=== PATIENT | male | born 1975 | race African-American/Black ===

== ENCOUNTER 2016-11-08 13:07 | Inpatient (IN) | payer MEDICARE, OTHER ==
[~2016-11-08] VITALS: Ht 182.9 cm; Wt 79.4 kg
[2016-11-08] MEDS ORDERED: fentaNYL PF VIAL 100 MCG/2 ML VIAL IV PRN (13:30)
--- NOTE | 2016-11-08 13:31 | RAD ---
Indication: Fell off of a ladder. Time of exam 1323 hours. 3 views of the right ankle demonstrate severely comminuted fractures of the distal tibia and fibula. There is slight lateral angulation of the distal tibial and fibular fracture fragments. Tibiotalar alignment is maintained, without evidence of dislocation. It is uncertain if there is intra-articular extension. A definite fracture line extending to the mortise is not seen however. The hindfoot is unremarkable. No calcaneal fracture is seen. Impression: Comminuted distal tibial and fibular fractures with angulation.
--- NOTE | 2016-11-08 13:42 | PHYS DOC ---
Past Medical History Past Medical History: No Pertinent History Past Surgical History: No Surgical History Alcohol Use: Heavy Drug Use: None Adult General Chief Complaint Chief Complaint: LOWER EXTREMITY SWELLING HPI HPI 41-year-old male presenting to the emergency department today by EMS after sustaining an injury while his ladder was falling from a proximally 10 feet. This happened yesterday. He complains of severe pain in his right ankle. There is a deformity present. The pain is intermittent sharp nonradiating and alleviated with elevation of the extremity. That he used alcohol to dull the pain. The injury is not getting better. Review of systems is negative for chest pain shortness of breath and pain hip pain abdominal pain or chest pain. All other review of systems is negative unless otherwise noted in history of present illness. Pertinent physical exam findings showed a deformity of the right ankle. Palpable pulse distally with 2 second cap refill. Patient is able to with wiggle his toes and has sensation in the foot currently (he does complain of a light tingling but can feel my hand in all nerve distributions). skin is intact. Not open injury. Nontender knee. Positive squeeze test. Normal range of motion of the knee. Otherwise nontender abdomen no crepitus to palpation of the chest wall. Lung sounds clear bilaterally. Head neck are atraumatic. The remainder of the extremities are atraumatic with normal range of motion. ED course: 41-year-old male presenting to the emergency department after sustaining a tib-fib fracture. Patient was given IV fluids and pain medications. I discussed the case with Dr. Zavala. The patient was then admitted for acute surgical intervention. I admitted the patient to the hospitalist. Review of Systems Review of Systems SEE ABOVE. Current Medications Current Medications Current Medications Medications (Trade) Dose Ordered Sig/Nolan Start Time Stop Time Status Last Admin Dose Admin Fentanyl Citrate (Fentanyl 2ml Vial) 50 mcg PRN Q15MIN PRN 11/08/16 13:30 11/09/16 13:29 11/08/16 13:44 50 MCG Morphine Sulfate 2 mg PRN Q2HR PRN 11/08/16 14:30 11/09/16 14:29 UNV Ondansetron HCl (Zofran) 4 mg PRN Q8HRS PRN 11/08/16 14:30 11/09/16 14:29 Sodium Chloride 1,000 ml @ 125 mls/hr Q8H 11/08/16 14:16 11/09/16 14:15 UNV Allergies Allergies Allergies Coded Allergies Type Severity Reaction Last Updated Verified No Known Drug Allergies 11/08/16 No Physical Exam Physical Exam Constitutional: Well developed, well nourished, no acute distress, non-toxic appearance. [] HENT: Normocephalic, atraumatic, bilateral external ears normal, oropharynx moist, no oral exudates, nose normal. [] Eyes: PERRLA, EOMI, conjunctiva normal, no discharge. [] Neck: Normal range of motion, no tenderness, supple, no stridor. [] Cardiovascular:Heart rate regular rhythm, no murmur [] Lungs & Thorax: Bilateral breath sounds clear to auscultation [] Abdomen: Bowel sounds normal, soft, no tenderness, no masses, no pulsatile masses. [] Skin: Warm, dry, no erythema, no rash. [] Back: No tenderness, no CVA tenderness. [] Extremities: see above Neurologic: Alert and oriented X 3, normal motor function, normal sensory function, no focal deficits noted. [] Psychologic: Affect normal, judgement normal, mood normal. [] Current Patient Data Vital Signs Vital Signs Date Time Temp Pulse Resp B/P (MAP) Pulse Ox O2 Delivery O2 Flow Rate FiO2 11/08/16 13:07 97.7 80 18 98 Room Air 97.7 EKG EKG [] Radiology/Procedures Radiology/Procedures [] Course & Med Decision Making Course & Med Decision Making Pertinent Labs and Imaging studies reviewed. (See chart for details) [] Dragon Disclaimer Dragon Disclaimer This electronic medical record was generated, in whole or in part, using a voice recognition dictation system. Departure Departure Impression: Primary Impression: Tibia/fibula fracture Disposition: ADMITTED INPATIENT Condition: STABLE Problem Qualifiers Primary Impression: Tibia/fibula fracture Encounter type: initial encounter Fracture type: closed Laterality: right Qualified Codes: S82.201A - Unspecified fracture of shaft of right tibia, initial encounter for closed fracture; S82.401A - Unspecified fracture of shaft of right fibula, initial encounter for closed fracture LAISHA GARCÍA MD Nov 08, 2016 13:42
[2016-11-08] MEDS: IV NORMAL SALINE 1000ML BAG 1,000 ML IV SCH ×2 (13:43→20:12)
[2016-11-08] MEDS ORDERED: ONDANSETRON PF 4 MG/2 ML VIAL. IV ONE (13:45)
--- NOTE | 2016-11-08 14:08 | RAD ---
Indication: Fall with pain to the right ankle. Time of exam 1354 hours. 2 views right tibia and fibula were obtained. The comminuted fractures of the distal tibia and fibular are again noted. The more proximal tibia and fibula appear intact. The soft tissues are unremarkable. Impression: Comminuted distal tibial and fibular fractures. No other abnormality is seen.
[2016-11-08] MEDS ORDERED: ONDANSETRON PF 4 MG/2 ML VIAL. IV PRN ×2 (14:30→15:50)
[2016-11-08] MEDS ORDERED: MORPHINE SULFATE 2 MG/ML DISP.SYRIN. IV PRN (14:30)
[2016-11-08] MEDS ORDERED: IV NORMAL SALINE 1000ML BAG 1,000 ML IV SCH (14:30)
--- NOTE | 2016-11-08 15:06 | ACF ---
Admission Forms Criteria MUSCULOSKELETAL DISEASE GRG Clinical Indications for Admission to Inpatient Care (Place 'X' for any and all applicable criteria): Hospital admission is needed for appropriate care of the patient because of 1 or more of the following: [X]I. Fracture, dislocation, or other musculoskeletal injury requiring inpatient care(medical) as indicated by 1 or more of the following(4)(5)(6)(7) [ ]a) Vertebral fracture requiring observation for instability or neurologic compromise (8) [ ]b) Compartment syndrome (proven or cannot be ruled out during observation level of care) (9) [ ]c) Limb-threatening injury [ ]d) Major injury requiring inpatient stabilization such as traction initiation or external fixation before internal fixation or closure of complex or open fracture [X]e) Major injury requiring inpatient treatment after emergency or observation level care (as appropriate) [X]f) Severe pain requiring acute inpatient management [ ]g) Injury with suspicion of abuse or neglect (eg., child, dependent elderly) [ ]II. Newly diagnosed or suspected bone, joint, or orthopedic device infection (e.g., osteomyelitis, septic arthritis) needing 1 or more of the following(1)(2)(3) [ ]a) IV antibiotics that cannot be initiated in other than inpatient setting (e.g., patient too unstable or home infusion not available) [ ]b) Device removal or replacement [ ]c) Bone or soft tissue debridement [ ]d) Joint drainage (drain placement or repetitive aspirations) [ ]III. Severe rheumatologic disease (e.g., systemic lupus erythematosus, rheumatoid arthritis) with complications or comorbidities (Also use Optimal Recovery Care Criteria or General Recovery Criteria as appropriate on the basis of predominant condition), including 1 or more of the following( 10)(11)(12)(13) [ ]a) Severe infection (e.g., MACHINE P[employer] SEALER infection, sepsis) (14) [ ]b) Respiratory complications, including 1 or more of the following : [ ]i) Pleural effusion with respiratory compromise [ ]ii) Pulmonary hypertension with congestive failure [ ]iii) Respiratory failure [ ]iv) Pulmonary hemorrhage (15) [ ]c) Hematologic disease, including 1 or more of the following: [ ]i) Coagulopathy with bleeding [ ]ii) Thrombosis with hypercoagulable state [ ]iii) Thrombotic thrombocytopenic purpura [ ]d) Cerebritis with seizures, psychosis, or other severe abnormalities [ ]e) Vertebral destruction with monitoring needed for cervical myelopathy& possible respiratory compromise [ ]f) Exacerbation that requires inpatient treatment (e.g., intravenous immunosuppression) (16) [ ]g) Acute renal failure [ ]h) Cerebritis with seizures, psychosis, Altered mental status, or other neurologic abnormalities [ ]i) Pericardial effusion with tamponade [ ]j) Vertebral destruction, with monitoring needed for cervical myelopathy and possible respiratory compromise [ ]IV. Severe vasculitis with complications or comorbidities (Also use Optimal Recovery Care Criteria General Recovery Criteria as appropriate on the basis of predominant condition), including 1 or more of the following(11)(12)(17)(18)(19)(20) [ ]a) Exacerbation that requires inpatient treatment (e.g., intravenous immunosuppression) (19)(21) [ ]b) Pulmonary hemorrhage (15) [ ]c) M[employer] P[employer] SE[employer] vasculitis with seizures, psychosis, Altered mental status that is severe or persistent, or other severe abnormalities (22) [ ]d) Cerebral infarction [ ]e) Gastrointestinal ischemia [ ]f) Gangrene or threatened amputation [ ]g) Renal failure (16) [ ]h) Other significant complications of vasculitis ( eg., tissue or organ ischemia, organ dysfunction ) [ ]V. Severe myopathy as indicated by 1 or more of the following (28)(29) [ ]a) New onset of airway compromise or inability to swallow [ ]b) Respiratory deterioration with observation needed for impending respiratory failure [ ]c) Exacerbation that requires inpatient treatment (e.g., intravenous immunosuppression) [ ]. Severe crystal gout (arthropathy) indicated by 1 or more of the following (23)(24) [ ]a) Severe pain requiring acute inpatient management [ ]b) Exacerbation that requires inpatient treatment (e.g., intravenous treatment) [ ]VII.Rhabdomyolysis and 1 or more of the following (25)(26)(27) [ ]a) Acute renal failure [ ]b) Need for intravenous hydration after emergency or observation level care (as appropriate) [ ]c) Inability to maintain oral hydration [ ]d) Change in mental status [ ]e) Electrolyte abnormality that remains after emergency or observation level care (as appropriate) [ ]VIII Post amputation complication, as indicated by ANY ONE of the following [ ]a) Infection [ ]b) Dehiscence [ ]c) Myodesis failure [ ]IX. Severe pain requiring acute inpatient management due to musculoskeletal condition [ ]X. Musculoskeletal Disease and ALL of the following: [ ]a) Symptom or finding for which emergency and observation care have failed or are not considered appropriate (Use General Criteria: Observation Care as appropriate) [ ]b) Presence of ANY ONE of the following [ ]i) A General Admission Criteria [ ]ii) A Pediatric General Admission Criteria The original [facility] [employer] content created by [facility] [employer] has been revised. The portions of the content which have been revised are identified through the use of italic text or in bold, and [facility] has neither reviewed nor approved the modified material. All other unmodified content is copyright [facility]. Please see references footnoted in the original [facility] edition 2016 Admission Criteria Met?: Yes CHARO WALTON Nov 08, 2016 15:06
[2016-11-08 15:30] VITALS: BP 153/86
[2016-11-08] MEDS ORDERED: chlordiazePOXIDE HCL 25 MG CAPSULE PO PRN (16:30)
[2016-11-08] MEDS ORDERED: NICOTINE 21MG PATCH. TD PRN (16:30)
[2016-11-08] MEDS ORDERED: ALPRAZolam 1 MG TABLET PO PRN (16:30)
[2016-11-08] MEDS: fentaNYL PF VIAL 100 MCG/2 ML VIAL IV PRN ×4 (16:31→23:43)
--- NOTE | 2016-11-08 16:33 | PDOC1 ---
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 Decided to come in, FX tib fib on xray, planned for oR tonight PAinful, VS ok, labs ok, cast on, Ortho has seen already at ER level Past Medical History Cardiovascular: No pertinent hx Pulmonary: No pertinent hx GI: No pertinent hx Heme/Onc: No pertinent hx Hepatobiliary: No pertinent hx Psych: No pertinent hx Rheumatologic: No pertinent hx Infectious disease: No pertinent hx ENT: No pertinent hx Renal/: No pertinent hx Endocrine: No pertinent hx Dermatology: No pertinent hx Past Surgical History Past Surgical History: No pertinent history Family History Family History: No Significant Social History Smoke: 1 pack per day ALCOHOL: heavy Drugs: None Current Problem List Problem List Problems Medical Problems: (1) Tibia/fibula fracture Status: Acute Problems: Current Medications Current Medications Current Medications Fentanyl Citrate (Fentanyl 2ml Vial) 50 mcg PRN Q15MIN PRN IV PAIN GREATER THAN 3/10 Last administered on 11/08/16 13:44; Start 11/08/16 at 13:30; Stop 11/08 at 15:53; Status DC Sodium Chloride 1,000 ml @ 100 mls/hr Q10H IV Last administered on 11/08/16 13 :43; Start 11/08/16 at 13:45; Stop 11/08/16 at 23:44 Ondansetron HCl (Zofran) 4 mg 1X ONCE IV Last administered on 11/08/16 13:44; Start 11/08/16 at 13:45; Stop 11/08/16 at 13:46; Status DC Ondansetron HCl (Zofran) 4 mg PRN Q8HRS PRN IV NAUSEA/VOMITING; Start 11/08/16 at 14:30; Stop 11/08/16 at 15:53; Status DC Morphine Sulfate 2 mg PRN Q2HR PRN IV PAIN Last administered on 11/08/16 15:30 ; Start 11/08/16 at 14:30; Stop 11/08/16 at 15:53; Status DC Sodium Chloride 1,000 ml @ 125 mls/hr Q8H IV Last administered on 11/08/16 15: 31; Start 11/08/16 at 14:30; Stop 11/08/16 at 15:53; Status DC Ondansetron HCl (Zofran) 4 mg PRN Q6HRS PRN IV NAUSEA/VOMITING; Start 11/08/16 at 15:50 Fentanyl Citrate (Fentanyl 2ml Vial) 50 mcg PRN Q2HR PRN IV PAIN; Start at 16:00 Pantoprazole Sodium (Protonix Vial) 40 mg DAILYAC IVP ; Start 11/09/16 at 07:30 Enoxaparin Sodium (Lovenox 40mg Syringe) 40 mg Q24H SQ ; Start 11/08/16 at 21:00 Allergies Allergies: Coded Allergies: morphine (Verified Adverse Reaction, Mild, 11/08/16) States it gives him a headache and makes him feel "weird" ROS General: No: Chills, Night Sweats, Fatigue, Malaise, Appetite, Other PSYCHOLOGICAL ROS: No: Anxiety, Behavioral Disorder, Concentration difficultie , Decreased libido, Depression, Disorientation, Hallucinations, Hostility, Irritablity, Memory difficulties, Mood Swings, Obsessive thoughts, Physical abuse, Sexual abuse, Sleep disturbances, Suicidal ideation, Other Eyes: No Blurry vision, No Decreased vision, No Double vision, No Dry eyes, No Excessive tearing, No Eye Pain, No Itchy Eyes, No Loss of vision, No Photophobia , No Scotomata, No Uses contacts, No Uses glasses, No Other HEENT: No: Heacaches, Visual Changes, Hearing change, Nasal congestion, Nasal discharge, Oral lesions, Sinus pain, Sore Throat, Epistaxis, Sneezing, Snoring, Tinnitus, Vertigo, Vocal changes, Other ALLERGY AND IMMUNOLOGY: No: Hives, Insect Bite Sensitivity, Itchy/Watery Eyes, Nasal Congestion, Post Nasal Drip, Seasonal Allergies, Other Hematological and Lymphatic: No: Bleeding Problems, Blood Clots, Blood Transfusions, Brusing, Night Sweats, Pallor, Swollen Lymph Nodes, Other ENDOCRINE: No: Breast Changes, Galactorrhea, Hair Pattern Changes, Hot Flashes , Malaise/lethargy, Mood Swings, Palpitations, Polydipsia/polyuria, Skin Changes , Temperature Intolerance, Unexpected Weight Changes, Other Breast: No New/Changing Breast Lumps, No Nipple changes, No Nipple discharge, No Other Respiratory: No: Cough, Hemoptysis, Orthopnea, Pleuritic Pain, Shortness of breath, SOB with excertion, Sputum Changes, Stridor, Tachypnea, Wheezing, Other Cardiovascular: No Chest Pain, No Palpitations, No Orthopnea, No Paroxysmal Noc. Dyspnea, No Edema, No Lt Headedness, No Other Gastrointestinal: No Nausea, No Vomiting, No Abdominal Pain, No Diarrhea, No Constipation, No Melena, No Hematochezia, No Other Genitourinary: No Dysuria, No Frequency, No Incontinence, No Hematuria, No Retention, No Discharge, No Urgency, No Pain, No Flank Pain, No Other, No , No , No , No , No , No , No Musculoskeletal: Yes Other (R leg pain) Neurological: No Behavorial Changes, No Bowel/Bladder ControlChng, No Confusion , No Dizziness, No Gait Disturbance, No Headaches, No Impaired Coord/balance, No Memory Loss, No Numbness/Tingling, No Seizures, No Speech Problems, No Tremors, No Visual Changes, No Weakness, No Other Skin: No Dry Skin, No Eczema, No Hair Changes, No Lumps, No Mole Changes, No Mottling, No Nail Changes, No Pruritus, No Rash, No Skin Lesion Changes, No Other, No Acne Physical Exam General: Alert, Oriented X3, Cooperative, No acute distress HEENT: Atraumatic, PERRLA, EOMI Lungs: Clear to auscultation, Normal air movement Heart: S1S2, RRR, no thrills, no rubs, no gallops Cardiovascular: S1, S2 Breasts: Normal, Rt breast nml w/o mass, Lt breast nml w/o mass, Nipples normal Abdomen: Normal bowel sounds, Soft, No tenderness, No hepatosplenomegaly, No masses Male Genitals Exam: normal genitalia Extremities: Other (R leg in cast, mild to mod swolen foot, externally rotated) Skin: No rashes, No breakdown, No significant lesion Neuro: Normal gait, Normal speech, Strength at 5/5 X4 ext, Normal tone, Sensation intact, Cranial nerves 3-12 NL, Reflexes 2+ Psych/Mental Status: Mental status NL, Mood NL Vitals Vitals Vital Signs Date Time Temp Pulse Resp B/P (MAP) Pulse Ox O2 Delivery O2 Flow Rate FiO2 11/08/16 15:30 99.1 79 22 153/86 (108) 99 Room Air 99.1 VTE Prophylaxis Ordered VTE Prophylaxis Devices: Yes VTE Pharmacological Prophylaxi: Yes Assessment/Plan Assessment/Plan 1. R tib-fib fx, closed, traumatic sec to fall from ladder 2. SMOker 1ppday 3. HEavy etoh drinker 7 beers a day PLAN: Admit 2 MN NPO, IVF BAnana bag daily NIctoine patch CIWA DVT prophy PPI while nPO PT/OT Dylon RN Kaitlynn Seen at ER MASOOD NORTH MD Nov 08, 2016 16:33
[2016-11-08] MEDS: oxyCODONE/APAP 5/325 1 TAB TABLET PO PRN ×2 (18:32→23:43)
[2016-11-08] MEDS: MULTIVIT INFUSN,ADULT 4,VIT K 10 ML, FOLIC ACID 1 MG, THIAMINE 100 MG in IV DEXTROSE 5 ... IV SCH (18:38)
[2016-11-08 19:00] VITALS: BP 154/93
[2016-11-08] MEDS: ALPRAZolam 0.5 MG TABLET PO PRN (20:02)
[2016-11-08] MEDS: ENOXAPARIN 40 MG/0.4 ML SYRINGE. SQ SCH (20:03)
[2016-11-08 23:00] VITALS: BP 142/98
[2016-11-09] VITALS (9 sets, daily range): BP systolic 104–148; BP diastolic 38–96
[2016-11-09] MEDS: fentaNYL PF VIAL 100 MCG/2 ML VIAL IV PRN ×9 (02:55→20:04)
--- NOTE | 2016-11-09 03:00 | CONS ---
DATE OF CONSULTATION: 11/08/2016 REQUESTING PHYSICIAN: Dr. Low. REASON FOR CONSULTATION: Right ankle fracture. HISTORY OF PRESENT ILLNESS: The patient is an otherwise healthy 41-year-old male who fell from a ladder about 10 feet yesterday landing on his right ankle, had immediate onset of pain. He tried to medicate himself with alcohol last night as he is a heavy drinker, but stated that pain became more severe. He had swelling, inability to bear weight or move the ankle and brought in by ambulance today. PAST HISTORY: He denies any previous past medical or surgical history. ALLERGIES: No drug allergies. MEDICATIONS: No current medications aside from pain medications he has received in the Emergency Department. SOCIAL HISTORY: He denies tobacco or drug use and is a heavy alcohol user. REVIEW OF SYSTEMS: Denies any chest pain, shortness of breath, focal weakness, numbness, tingling, visual changes, loss of consciousness, neck or back pain, injury to any other joint. No loss of consciousness during the episode. No recent constitutional symptoms of fever, chills, change in bowel or bladder habits. FAMILY HISTORY: Noncontributory. PHYSICAL EXAMINATION: VITAL SIGNS: Temperature 97.7, pulse 80, respirations 18, 98% saturation on room air. HEENT: Atraumatic, normocephalic. MUSCULOSKELETAL: He has full range of motion, alignment, stability of bilateral shoulders, elbows and wrists. No tenderness on palpation over his neck or back. Good hip and knee range of motion bilaterally. Obvious deformity of his right ankle with significant swelling. He can wiggle his toes, but indicates some paresthesia in the toes. Normal examination of the contralateral left ankle. IMAGING: X-rays show a distal tibial metaphyseal and comminuted distal fibular fracture of the right ankle. TREATMENT PLAN: I described to him the anatomy of the ankle joint and the fact that he would need surgical intervention due to the current malalignment of the joint surface, but the tibia and fibula are involved and would require plates on each side, take surgery, my major concern is to keep him nonweightbearing to protect it and healing due to the swelling issues. I originally planned to take him to the operating room this evening, but unfortunately some emergency general surgery procedures are going on right now, we would make this very late, therefore I am going to take him to surgery first thing in the morning as there is operating room availability according to the nursing building and grounds supervisor and he is going to be admitted to the hospitalist overnight. Consent was obtained at this time. All of his questions were answered. We will proceed with surgery in the morning. DENEEN HUA MD DR: PRIMITIVO/dalia JOB#: [id number] / [id number]
[2016-11-09] MEDS: oxyCODONE/APAP 5/325 1 TAB TABLET PO PRN ×2 (03:40→23:27)
[2016-11-09 05:42] LABS: BASO # 0.1 x10^3/uL (0.0-0.2); BASO % 1 % (0-3); EOS % 1 % (0-3); HEMATOCRIT 33.9 % (39.0-53.0); HEMOGLOBIN 10.8 g/dL (13.0-17.5); LYMPH # 2.2 x10^3/uL (1.0-4.8); LYMPH % 33 % (24-48); MEAN CORPUSCULAR HEMOGLOBIN 25 pg (25-35); MEAN CORPUSCULAR HGB CONC 32 g/dL (31-37); MEAN CORPUSCULAR VOLUME 78 fL (79-100); MONO % 11 % (0-9); NEUT % 54 % (31-73); PLATELET COUNT 224 x10^3/uL (140-400); RED BLOOD COUNT 4.36 x10^6/uL (4.30-5.70); RED CELL DISTRIBUTION WIDTH 13.6 % (11.5-14.5); WHITE BLOOD COUNT 6.7 x10^3/uL (4.0-11.0)
[2016-11-09 05:55] LABS: GFR 99.6; POTASSIUM 3.9 mmol/L (3.5-5.1)
[2016-11-09] MEDS ORDERED: LIDOCAINE 1% 1 ML SYRINGE. ID PRN (07:00)
[2016-11-09] MEDS ORDERED: fentaNYL PF VIAL 100 MCG/2 ML VIAL IV PRN ×2 (07:00→19:00)
[2016-11-09] MEDS ORDERED: PROCHLORPERAZINE 10 MG/2 ML VIAL. IV PRN (07:00)
[2016-11-09] MEDS ORDERED: HYDROmorphone 2 MG/ML VIAL IV PRN (07:00)
[2016-11-09] MEDS ORDERED: ONDANSETRON PF 4 MG/2 ML VIAL. IV PRN ×2 (07:00→19:00)
[2016-11-09] MEDS ORDERED: MORPHINE SULFATE 2 MG/ML DISP.SYRIN. IV PRN (07:00)
[2016-11-09] MEDS ORDERED: IV RINGERS,LACTATED 1000ML 1,000 ML IV SCH (07:00)
[2016-11-09] MEDS: MULTIVIT INFUSN,ADULT 4,VIT K 10 ML, FOLIC ACID 1 MG, THIAMINE 100 MG in IV DEXTROSE 5 ... IV SCH (08:14)
[2016-11-09] MEDS: PANTOPRAZOLE IV PUSH 40 MG VIAL. IVP SCH (08:15)
[2016-11-09] MEDS ORDERED: FAMOTIDINE 20 MG/2 ML VIAL ONE (10:14)
[2016-11-09] MEDS ORDERED: DEXAMETHASONE SOD PHOS 20 MG/5 ML VIAL. ONE ×2 (10:14→15:12)
[2016-11-09] MEDS ORDERED: ROCURONIUM 50 MG/5 ML VIAL. ONE (10:14)
[2016-11-09] MEDS ORDERED: fentaNYL PF VIAL 100 MCG/2 ML VIAL ONE ×2 (10:14→15:12)
[2016-11-09] MEDS ORDERED: ONDANSETRON PF 4 MG/2 ML VIAL. ONE ×2 (10:14→15:12)
[2016-11-09] MEDS ORDERED: PROPOFOL 20 ML IV ONE ×2 (10:14→15:12)
[2016-11-09] MEDS ORDERED: LIDOCAINE 2% PF Vial for OR 5 ML VIAL. ONE ×2 (10:14→15:12)
[2016-11-09] MEDS ORDERED: MIDAZOLAM HCL/PF 2 MG/2 ML VIAL. ONE ×2 (10:16→15:12)
[2016-11-09] MEDS ORDERED: BUPIVACAINE MPF 0.5% 30 ML VIAL. ONE (15:33)
--- NOTE | 2016-11-09 17:31 | PDOC ---
PROGRESS NOTES Chief Complaint Chief Complaint Traumatic tib/fib fx ASSESSMENT AND PLAN: 1. Tib/fib fx: ORIF today. 2. EtOH abuse: banana bagCARINA protocol 3. Tobacco use: nicotine patch 4. Prophylaxis: lovenox post op; PPI History of Present Illness History of Present Illness pain fairly well controlled. Vitals Vitals Vital Signs Date Time Temp Pulse Resp B/P (MAP) Pulse Ox O2 Delivery O2 Flow Rate FiO2 11/09/16 15:35 18 99 Room Air 11/09/16 12:29 99.1 92 136/95 (109) 99.1 Physical Exam General: Alert, Oriented X3, Cooperative, No acute distress Abdomen: Normal bowel sounds, Soft, No tenderness, No hepatosplenomegaly, No masses Extremities: Other (R leg in cast, mild to mod swolen foot, externally rotated) Skin: No rashes, No breakdown, No significant lesion Labs LABS Laboratory Tests Test 11/09/16 05:25 White Blood Count 6.7 x10^3/uL (4.0-11.0) Red Blood Count 4.36 x10^6/uL (4.30-5.70) Hemoglobin 10.8 g/dL (13.0-17.5) Hematocrit 33.9 % (39.0-53.0) Mean Corpuscular Volume 78 fL (79-100) Mean Corpuscular Hemoglobin 25 pg (25-35) Mean Corpuscular Hemoglobin Concent 32 g/dL (31-37) Red Cell Distribution Width 13.6 % (11.5-14.5) Platelet Count 224 x10^3/uL (140-400) Neutrophils (%) (Auto) 54 % (31-73) Lymphocytes (%) (Auto) 33 % (24-48) Monocytes (%) (Auto) 11 % (0-9) Eosinophils (%) (Auto) 1 % (0-3) Basophils (%) (Auto) 1 % (0-3) Neutrophils # (Auto) 3.6 x10^3uL (1.8-7.7) Lymphocytes # (Auto) 2.2 x10^3/uL (1.0-4.8) Monocytes # (Auto) 0.8 x10^3/uL (0.0-1.1) Eosinophils # (Auto) 0.1 x10^3/uL (0.0-0.7) Basophils # (Auto) 0.1 x10^3/uL (0.0-0.2) Sodium Level 137 mmol/L (136-145) Potassium Level 3.9 mmol/L (3.5-5.1) Chloride Level 102 mmol/L (98-107) Carbon Dioxide Level 32 mmol/L (21-32) Anion Gap 3 (6-14) Blood Urea Nitrogen 12 mg/dL (8-26) Creatinine 1.0 mg/dL (0.7-1.3) Estimated GFR (Cockcroft-Gault) 99.6 Glucose Level 113 mg/dL (70-99) Calcium Level 8.0 mg/dL (8.5-10.1) GUPRREET RANKIN MD Nov 09, 2016 17:31
[2016-11-09] MEDS ORDERED: ESMOLOL 100 MG/10 ML VIAL. IV ONE (17:37)
--- NOTE | 2016-11-09 18:58 | PDOC ---
BRIEF OPERATIVE NOTE Date: Nov 09, 2016 Pre-Op Diagnosis right tibia pilon and distal fibula fxs Post-Op Diagnosis same Procedure Performed ORIF tibial pilon and distal fibulas fxs Surgeon Lucas Anesthesia Type: General Blood Loss 20cc Findings above Complications none DENEEN HUA MD Nov 09, 2016 18:58
[2016-11-09] MEDS ORDERED: DEXTROSE 50% 25 GM / 50ML DISP.SYRIN. IV PRN (19:00)
[2016-11-09] MEDS ORDERED: HYDROcodone/APAP 7.5/325MG 1 TAB TABLET PO PRN ×2 (19:00)
[2016-11-09] MEDS ORDERED: POLYETHYLENE GLYCOL 3350 17 GM PACKET. PO PRN (19:00)
[2016-11-09] MEDS ORDERED: WARFARIN 7.5 MG TABLET. PO ONE (19:00)
[2016-11-09 20:02] LABS: PROTHROMBIN TIME PATIENT 12.8 SEC (11.7-14.0)
[2016-11-09] MEDS: ENOXAPARIN 40 MG/0.4 ML SYRINGE. SQ SCH (21:07)
--- NOTE | 2016-11-09 23:35 | OP ---
DATE OF SURGERY: 11/09/2016 PREOPERATIVE DIAGNOSIS: Displaced right tibial plafond and distal fibular fractures. PROCEDURE: Operative reduction and internal fixation, tibial plafond fracture and distal fibular shaft fracture with medial locking plate and screw fixation and lateral distal fibular locking plate fixation. SURGEON: Deni Zavala M.D. ANESTHESIA: General. ESTIMATED BLOOD LOSS: 20 mL. COMPLICATIONS: None. TOURNIQUET TIME: Slightly in excess of 1 hour and half. OPERATIVE INDICATIONS: The patient is a 41-year-old male who fell about 10 feet off a ladder sustaining the above injury. I had gone over with him the risks, benefits, postoperative course of the planned operative treatment and desirable outcomes of nonoperative management and the possibility of infection, wound healing problems, medical or other anesthetic complications, nonhealing, nerve or blood vessel damage among others and the ____ expected period of nonweightbearing. All his questions were answered. Consent was obtained and he agrees to proceed with operative evaluation and treatment. OPERATIVE TECHNIQUE: The patient was identified, procedure verified, patient placed in the supine position on the operating table. After thigh tourniquet was placed and the right lower extremity was prepped and draped in standard sterile fashion. A timeout was performed, the patient and procedure identified and verified. The right lower extremity was then exsanguinated by an Esmarch bandage. Tourniquet inflated to 300 mmHg and a medial incision was made over the medial tibial crest and subperiosteal dissection was carried out. The articular surface was anatomically aligned. The tibial shaft and distal locking screws were placed along with a single shaft screw nonlocking in a sliding hole initially. Excellent alignment was noted at the ankle joint. Screws were initially repositioned to achieve anatomic distal alignment. The remainder of the locking screws were placed into the metaphyseal region for additional fixation, all under fluoroscopic guidance. The shaft screws were then placed in a nonlocking fashion to complete the fixation. The distal fibula was then exposed with a longitudinal incision. Subperiosteal dissection carried out and there was very significant comminution noted in the fibular shaft, 8-hole distal locking plate from Ai was then selected and shaft screw was placed to obtain an anatomic reduction; comminuted fracture fragments were placed around the area. Distal locking screws were then placed with a 2.7. Appropriately sized screws throughout and proximally nonlocked 2.7 bicortical screws were placed. Excellent anatomic alignment was shown at the ankle joint mortise under multiple views including AP, mortise and lateral views. Position of hardware was likewise checked. Thorough irrigation carried out with normal saline solution and closure accomplished with buried Vicryl suture and aileen laterally, closure medially in addition to buried Vicryl suture was supplemented by trauma [id number]-near stitch to relieve tension on the skin area, particularly in the midpoint of the incision. Excellent closure was accomplished with #2-0 nylon suture in this fashion. Again, thorough irrigation carried out with normal saline solution. The subcutaneous area was injected with 0.5% plain Marcaine. Sterile dressings and well-padded posterior splint were then placed. Toes were noted to be warm and pink following deflation of the tourniquet after a total tourniquet time slightly in excess of an hour and half. The patient was extubated and transferred to postop holding in stable condition having tolerated the procedure well. DENI ZAVALA MD DR: PRIMITIVO/dalia JOB#: [id number] / [id number]
[2016-11-10] MEDS: oxyCODONE IR 5 MG TABLET PO PRN ×6 (02:32→21:22)
[2016-11-10] MEDS: fentaNYL PF VIAL 100 MCG/2 ML VIAL IV PRN (02:40)
[2016-11-10 03:18] VITALS: BP 140/84
[2016-11-10 04:12] LABS: BASO % 0 % (0-3); EOS % 0 % (0-3); HEMATOCRIT 35.2 % (39.0-53.0); HEMOGLOBIN 11.1 g/dL (13.0-17.5); LYMPH # 0.6 x10^3/uL (1.0-4.8); LYMPH % 8 % (24-48); MEAN CORPUSCULAR HEMOGLOBIN 25 pg (25-35); MEAN CORPUSCULAR HGB CONC 32 g/dL (31-37); MEAN CORPUSCULAR VOLUME 78 fL (79-100); MONO % 11 % (0-9); NEUT % 81 % (31-73); PLATELET COUNT 246 x10^3/uL (140-400); RED BLOOD COUNT 4.51 x10^6/uL (4.30-5.70); RED CELL DISTRIBUTION WIDTH 13.6 % (11.5-14.5); WHITE BLOOD COUNT 8.2 x10^3/uL (4.0-11.0)
[2016-11-10 04:32] LABS: ALBUMIN 3.1 g/dL (3.4-5.0); ALBUMIN/GLOBULIN RATIO 0.8 (1.0-1.7); CALCIUM 8.6 mg/dL (8.5-10.1); CREATININE 0.9 mg/dL (0.7-1.3); GFR 112.5; POTASSIUM 3.7 mmol/L (3.5-5.1); TOTAL BILIRUBIN 0.5 mg/dL (0.2-1.0); TOTAL PROTEIN 6.9 g/dL (6.4-8.2)
[2016-11-10 04:42] LABS: INR 1.1 (0.8-1.1); PROTHROMBIN TIME PATIENT 13.2 SEC (11.7-14.0)
[2016-11-10] MEDS: oxyCODONE/APAP 5/325 1 TAB TABLET PO PRN (04:42)
[2016-11-10] MEDS ORDERED: MAGNESIUM HYDROXIDE 2,400 MG/30 ML ORAL.SUSP. PO PRN (06:00)
[2016-11-10 07:00] VITALS: BP 151/93
[2016-11-10] MEDS: PANTOPRAZOLE IV PUSH 40 MG VIAL. IVP SCH (08:53)
[2016-11-10] MEDS: MULTIVIT INFUSN,ADULT 4,VIT K 10 ML, FOLIC ACID 1 MG, THIAMINE 100 MG in IV DEXTROSE 5 ... IV SCH (08:54)
[2016-11-10] MEDS ORDERED: SENNOSIDES/DOCUSATE 8.6/50MG TABLET. PO SCH (09:00)
[2016-11-10 11:00] VITALS: BP 137/85
--- NOTE | 2016-11-10 12:35 | PDOC ---
PROGRESS NOTES Chief Complaint Chief Complaint Traumatic tib/fib fx ASSESSMENT AND PLAN: 1. Tib/fib fx: ORIF on 11/[address] Zavala 2. pain control: not optimal. increase perocets, avoid fentanyl. d/w him and 3. EtOH abuse: not triggering any W/D signs or sx on CIWA. monitor for add.l 24h. stop banana bag today, is eating w/o difficulties 4. Tobacco use: nicotine patch 5. Prophylaxis: lovenox post op; PPI 6. Constipation: not unexpected with narcotics. start SenokotS 7. Anemia: microcytic. obtain iron studies 8. Dispo: OT/PT eval. with non-weight baring, anticipate home in near future History of Present Illness History of Present Illness pain 7 at best, had a rough night. also constipated Vitals Vitals Vital Signs Date Time Temp Pulse Resp B/P (MAP) Pulse Ox O2 Delivery O2 Flow Rate FiO2 11/10/16 11:53 Room Air 11/10/16 11:00 98.2 86 18 137/85 (102) 99 98.2 11/09/16 19:16 10 Physical Exam General: Alert, Oriented X3, Cooperative, No acute distress Heart: Regular rate Lungs: Clear Abdomen: Normal bowel sounds, Soft, No tenderness Extremities: No edema, Other (R leg in cast ) Skin: No rashes, No breakdown, No significant lesion Labs LABS Laboratory Tests Test 11/09/16 19:45 11/10/16 03:40 Prothrombin Time 12.8 SEC (11.7-14.0) 13.2 SEC (11.7-14.0) Prothromb Time International Ratio 1.0 (0.8-1.1) 1.1 (0.8-1.1) White Blood Count 8.2 x10^3/uL (4.0-11.0) Red Blood Count 4.51 x10^6/uL (4.30-5.70) Hemoglobin 11.1 g/dL (13.0-17.5) Hematocrit 35.2 % (39.0-53.0) Mean Corpuscular Volume 78 fL (79-100) Mean Corpuscular Hemoglobin 25 pg (25-35) Mean Corpuscular Hemoglobin Concent 32 g/dL (31-37) Red Cell Distribution Width 13.6 % (11.5-14.5) Platelet Count 246 x10^3/uL (140-400) Neutrophils (%) (Auto) 81 % (31-73) Lymphocytes (%) (Auto) 8 % (24-48) Monocytes (%) (Auto) 11 % (0-9) Eosinophils (%) (Auto) 0 % (0-3) Basophils (%) (Auto) 0 % (0-3) Neutrophils # (Auto) 6.6 x10^3uL (1.8-7.7) Lymphocytes # (Auto) 0.6 x10^3/uL (1.0-4.8) Monocytes # (Auto) 0.9 x10^3/uL (0.0-1.1) Eosinophils # (Auto) 0.0 x10^3/uL (0.0-0.7) Basophils # (Auto) 0.0 x10^3/uL (0.0-0.2) Sodium Level 138 mmol/L (136-145) Potassium Level 3.7 mmol/L (3.5-5.1) Chloride Level 101 mmol/L (98-107) Carbon Dioxide Level 32 mmol/L (21-32) Anion Gap 5 (6-14) Blood Urea Nitrogen 5 mg/dL (8-26) Creatinine 0.9 mg/dL (0.7-1.3) Estimated GFR (Cockcroft-Gault) 112.5 BUN/Creatinine Ratio 6 (6-20) Glucose Level 120 mg/dL (70-99) Calcium Level 8.6 mg/dL (8.5-10.1) Total Bilirubin 0.5 mg/dL (0.2-1.0) Aspartate Amino Transf (AST/SGOT) 39 U/L (15-37) Alanine Aminotransferase (ALT/SGPT) 32 U/L (16-63) Alkaline Phosphatase 59 U/L (46-116) Total Protein 6.9 g/dL (6.4-8.2) Albumin 3.1 g/dL (3.4-5.0) Albumin/Globulin Ratio 0.8 (1.0-1.7) GURPREET RANKIN MD Nov 10, 2016 12:35
[2016-11-10] MEDS ORDERED: oxyCODONE IR 5 MG TABLET PO PRN (12:45)
[2016-11-10] MEDS: SENNOSIDES/DOCUSATE 8.6/50MG TABLET. PO SCH (14:41)
[2016-11-10 14:44] VITALS: BP 160/88
[2016-11-10] MEDS ORDERED: BISACODYL 10 MG SUPP.RECT. PR PRN (16:00)
[2016-11-10] MEDS ORDERED: WARFARIN 5 MG TABLET. PO ONE (16:00)
[2016-11-10] MEDS: HYDROmorphone 2 MG/ML VIAL IVP PRN ×3 (16:48→23:06)
[2016-11-10 19:30] VITALS: BP 151/83
[2016-11-10] MEDS: ENOXAPARIN 40 MG/0.4 ML SYRINGE. SQ SCH (21:21)
[2016-11-10 23:35] VITALS: BP 133/82
[2016-11-11] MEDS: HYDROmorphone 2 MG/ML VIAL IVP PRN ×3 (02:04→16:23)
[2016-11-11 03:14] VITALS: BP 134/79
[2016-11-11] MEDS: ALPRAZolam 0.5 MG TABLET PO PRN ×3 (06:00→23:53)
[2016-11-11 06:18] LABS: BASO % 1 % (0-3); EOS % 1 % (0-3); HEMATOCRIT 33.3 % (39.0-53.0); HEMOGLOBIN 10.6 g/dL (13.0-17.5); LYMPH # 2.3 x10^3/uL (1.0-4.8); LYMPH % 28 % (24-48); MEAN CORPUSCULAR HEMOGLOBIN 25 pg (25-35); MEAN CORPUSCULAR HGB CONC 32 g/dL (31-37); MEAN CORPUSCULAR VOLUME 78 fL (79-100); MONO % 10 % (0-9); NEUT % 60 % (31-73); PLATELET COUNT 256 x10^3/uL (140-400); RED BLOOD COUNT 4.27 x10^6/uL (4.30-5.70); RED CELL DISTRIBUTION WIDTH 13.1 % (11.5-14.5)
[2016-11-11 06:41] LABS: INR 1.1 (0.8-1.1); PROTHROMBIN TIME PATIENT 13.1 SEC (11.7-14.0)
[2016-11-11 06:47] LABS: % SAT IRON 5 % (15-34); IRON,SERUM 10 ug/dL (65-175)
[2016-11-11 06:51] LABS: CALCIUM 8.5 mg/dL (8.5-10.1); CREATININE 0.9 mg/dL (0.7-1.3); GFR 112.5; POTASSIUM 3.4 mmol/L (3.5-5.1)
[2016-11-11 07:00] VITALS: BP 137/80
[2016-11-11] MEDS: oxyCODONE IR 5 MG TABLET PO PRN ×3 (07:50→21:45)
[2016-11-11] MEDS: PANTOPRAZOLE 40 MG TABLET.DR. PO SCH (07:50)
[2016-11-11] MEDS: SENNOSIDES/DOCUSATE 8.6/50MG TABLET. PO SCH ×2 (07:51→21:45)
[2016-11-11] MEDS: fentaNYL PF VIAL 100 MCG/2 ML VIAL IV PRN ×3 (07:51→23:53)
[2016-11-11 11:00] VITALS: BP 121/76
--- NOTE | 2016-11-11 14:43 | PDOC ---
PROGRESS NOTES Chief Complaint Chief Complaint Traumatic tib/fib fx ASSESSMENT AND PLAN: 1. Tib/fib fx: ORIF on 11/[address] Zavala 2. pain control: not optimal, despite increased dose and frequency. switch to PO morphine 3. EtOH abuse: not triggering any W/D signs or sx on CIWA. stop protocol 4. Tobacco use: nicotine patch 5. Prophylaxis: lovenox post op; PPI 6. Constipation: not unexpected with narcotics. increase SenokotS to bid, miralax prn 7. Anemia: microcytic. iron studies c/w combination of iron deficient and inflammation. start Fe oral on O/P basis (can add to constipation) 8. Dispo: OT/PT eval. with non-weight baring, anticipate home in near future History of Present Illness History of Present Illness pain 7 at best, had a rough night. remains constipated Vitals Vitals Vital Signs Date Time Temp Pulse Resp B/P (MAP) Pulse Ox O2 Delivery O2 Flow Rate FiO2 11/11/16 13:40 Room Air 11/11/16 11:00 99.0 77 18 121/76 (91) 100 99.0 11/10/16 21:00 10.0 Physical Exam General: Alert, Oriented X3, Cooperative, mild distress Heart: Regular rate Lungs: Clear Abdomen: Normal bowel sounds, Soft, No tenderness Extremities: No edema, Other (R leg in cast ) Skin: No rashes, No breakdown, No significant lesion Labs LABS Laboratory Tests Test 11/11/16 05:55 White Blood Count 8.0 x10^3/uL (4.0-11.0) Red Blood Count 4.27 x10^6/uL (4.30-5.70) Hemoglobin 10.6 g/dL (13.0-17.5) Hematocrit 33.3 % (39.0-53.0) Mean Corpuscular Volume 78 fL (79-100) Mean Corpuscular Hemoglobin 25 pg (25-35) Mean Corpuscular Hemoglobin Concent 32 g/dL (31-37) Red Cell Distribution Width 13.1 % (11.5-14.5) Platelet Count 256 x10^3/uL (140-400) Neutrophils (%) (Auto) 60 % (31-73) Lymphocytes (%) (Auto) 28 % (24-48) Monocytes (%) (Auto) 10 % (0-9) Eosinophils (%) (Auto) 1 % (0-3) Basophils (%) (Auto) 1 % (0-3) Neutrophils # (Auto) 4.8 x10^3uL (1.8-7.7) Lymphocytes # (Auto) 2.3 x10^3/uL (1.0-4.8) Monocytes # (Auto) 0.8 x10^3/uL (0.0-1.1) Eosinophils # (Auto) 0.1 x10^3/uL (0.0-0.7) Basophils # (Auto) 0.0 x10^3/uL (0.0-0.2) Prothrombin Time 13.1 SEC (11.7-14.0) Prothromb Time International Ratio 1.1 (0.8-1.1) Sodium Level 136 mmol/L (136-145) Potassium Level 3.4 mmol/L (3.5-5.1) Chloride Level 97 mmol/L (98-107) Carbon Dioxide Level 32 mmol/L (21-32) Anion Gap 7 (6-14) Blood Urea Nitrogen 5 mg/dL (8-26) Creatinine 0.9 mg/dL (0.7-1.3) Estimated GFR (Cockcroft-Gault) 112.5 Glucose Level 96 mg/dL (70-99) Calcium Level 8.5 mg/dL (8.5-10.1) Iron Level 10 ug/dL (65-175) Total Iron Binding Capacity 211 ug/dL (250-450) Iron Saturation 5 % (15-34) Ferritin 225 ng/mL (26-388) GURPREET RANKIN MD Nov 11, 2016 14:42
[2016-11-11 15:00] VITALS: BP 139/80
[2016-11-11] MEDS ORDERED: WARFARIN 7.5 MG TABLET. PO ONE (16:00)
[2016-11-11] MEDS ORDERED: MORPHINE IR 15 MG TABLET PO PRN ×2 (18:30→18:45)
[2016-11-11 19:00] VITALS: BP 138/84
--- NOTE | 2016-11-11 19:23 | PDOC ---
PROGRESS NOTES Subjective Subjective Problems overnight: Somewhat better pain relief with the lighted but still has severe pain he continues to think that elevation of the foot makes his toes feel tighter and he likes to draw up the foot toward his buttock area Objective Vital Signs Vital Signs Date Time Temp Pulse Resp B/P (MAP) Pulse Ox O2 Delivery O2 Flow Rate FiO2 11/11/16 16:54 Room Air 11/11/16 15:00 97.5 94 20 139/80 (99) 97 97.5 11/10/16 21:00 10.0 Physical Exam On exam he has some slight lateral drainage distal neurovascular status intact good capillary refill to the toes Labs Laboratory Tests Test 11/09/16 19:45 11/10/16 03:40 11/11/16 05:55 Prothrombin Time 12.8 SEC (11.7-14.0) 13.2 SEC (11.7-14.0) 13.1 SEC (11.7-14.0) Prothromb Time International Ratio 1.0 (0.8-1.1) 1.1 (0.8-1.1) 1.1 (0.8-1.1) White Blood Count 8.2 x10^3/uL (4.0-11.0) 8.0 x10^3/uL (4.0-11.0) Red Blood Count 4.51 x10^6/uL (4.30-5.70) 4.27 x10^6/uL (4.30-5.70) Hemoglobin 11.1 g/dL (13.0-17.5) 10.6 g/dL (13.0-17.5) Hematocrit 35.2 % (39.0-53.0) 33.3 % (39.0-53.0) Mean Corpuscular Volume 78 fL (79-100) 78 fL (79-100) Mean Corpuscular Hemoglobin 25 pg (25-35) 25 pg (25-35) Mean Corpuscular Hemoglobin Concent 32 g/dL (31-37) 32 g/dL (31-37) Red Cell Distribution Width 13.6 % (11.5-14.5) 13.1 % (11.5-14.5) Platelet Count 246 x10^3/uL (140-400) 256 x10^3/uL (140-400) Neutrophils (%) (Auto) 81 % (31-73) 60 % (31-73) Lymphocytes (%) (Auto) 8 % (24-48) 28 % (24-48) Monocytes (%) (Auto) 11 % (0-9) 10 % (0-9) Eosinophils (%) (Auto) 0 % (0-3) 1 % (0-3) Basophils (%) (Auto) 0 % (0-3) 1 % (0-3) Neutrophils # (Auto) 6.6 x10^3uL (1.8-7.7) 4.8 x10^3uL (1.8-7.7) Lymphocytes # (Auto) 0.6 x10^3/uL (1.0-4.8) 2.3 x10^3/uL (1.0-4.8) Monocytes # (Auto) 0.9 x10^3/uL (0.0-1.1) 0.8 x10^3/uL (0.0-1.1) Eosinophils # (Auto) 0.0 x10^3/uL (0.0-0.7) 0.1 x10^3/uL (0.0-0.7) Basophils # (Auto) 0.0 x10^3/uL (0.0-0.2) 0.0 x10^3/uL (0.0-0.2) Sodium Level 138 mmol/L (136-145) 136 mmol/L (136-145) Potassium Level 3.7 mmol/L (3.5-5.1) 3.4 mmol/L (3.5-5.1) Chloride Level 101 mmol/L (98-107) 97 mmol/L (98-107) Carbon Dioxide Level 32 mmol/L (21-32) 32 mmol/L (21-32) Anion Gap 5 (6-14) 7 (6-14) Blood Urea Nitrogen 5 mg/dL (8-26) 5 mg/dL (8-26) Creatinine 0.9 mg/dL (0.7-1.3) 0.9 mg/dL (0.7-1.3) Estimated GFR (Cockcroft-Gault) 112.5 112.5 BUN/Creatinine Ratio 6 (6-20) Glucose Level 120 mg/dL (70-99) 96 mg/dL (70-99) Calcium Level 8.6 mg/dL (8.5-10.1) 8.5 mg/dL (8.5-10.1) Total Bilirubin 0.5 mg/dL (0.2-1.0) Aspartate Amino Transf (AST/SGOT) 39 U/L (15-37) Alanine Aminotransferase (ALT/SGPT) 32 U/L (16-63) Alkaline Phosphatase 59 U/L (46-116) Total Protein 6.9 g/dL (6.4-8.2) Albumin 3.1 g/dL (3.4-5.0) Albumin/Globulin Ratio 0.8 (1.0-1.7) Iron Level 10 ug/dL (65-175) Total Iron Binding Capacity 211 ug/dL (250-450) Iron Saturation 5 % (15-34) Ferritin 225 ng/mL (26-388) Laboratory Tests Test 11/11/16 05:55 White Blood Count 8.0 x10^3/uL (4.0-11.0) Red Blood Count 4.27 x10^6/uL (4.30-5.70) Hemoglobin 10.6 g/dL (13.0-17.5) Hematocrit 33.3 % (39.0-53.0) Mean Corpuscular Volume 78 fL (79-100) Mean Corpuscular Hemoglobin 25 pg (25-35) Mean Corpuscular Hemoglobin Concent 32 g/dL (31-37) Red Cell Distribution Width 13.1 % (11.5-14.5) Platelet Count 256 x10^3/uL (140-400) Neutrophils (%) (Auto) 60 % (31-73) Lymphocytes (%) (Auto) 28 % (24-48) Monocytes (%) (Auto) 10 % (0-9) Eosinophils (%) (Auto) 1 % (0-3) Basophils (%) (Auto) 1 % (0-3) Neutrophils # (Auto) 4.8 x10^3uL (1.8-7.7) Lymphocytes # (Auto) 2.3 x10^3/uL (1.0-4.8) Monocytes # (Auto) 0.8 x10^3/uL (0.0-1.1) Eosinophils # (Auto) 0.1 x10^3/uL (0.0-0.7) Basophils # (Auto) 0.0 x10^3/uL (0.0-0.2) Prothrombin Time 13.1 SEC (11.7-14.0) Prothromb Time International Ratio 1.1 (0.8-1.1) Sodium Level 136 mmol/L (136-145) Potassium Level 3.4 mmol/L (3.5-5.1) Chloride Level 97 mmol/L (98-107) Carbon Dioxide Level 32 mmol/L (21-32) Anion Gap 7 (6-14) Blood Urea Nitrogen 5 mg/dL (8-26) Creatinine 0.9 mg/dL (0.7-1.3) Estimated GFR (Cockcroft-Gault) 112.5 Glucose Level 96 mg/dL (70-99) Calcium Level 8.5 mg/dL (8.5-10.1) Iron Level 10 ug/dL (65-175) Total Iron Binding Capacity 211 ug/dL (250-450) Iron Saturation 5 % (15-34) Ferritin 225 ng/mL (26-388) Assessment Assessment POD# [], S/P [ORIF distal tibia and fibula fracture] Problems: Plan Plan of Care I encouraged him to elevate as much as possible is that we'll ultimately take the swelling down the best. While he is otherwise stable from an orthopedic standpoint we really need to get his pain under a bit better control using oral medications before discharge is feasible DENEEN HUA MD Nov 11, 2016 19:23
[2016-11-11] MEDS: ENOXAPARIN 40 MG/0.4 ML SYRINGE. SQ SCH (21:47)
[2016-11-11 23:00] VITALS: BP 133/75
[2016-11-12] MEDS: fentaNYL PF VIAL 100 MCG/2 ML VIAL IV PRN ×5 (02:29→23:36)
[2016-11-12 03:24] VITALS: BP 128/63
[2016-11-12] MEDS: oxyCODONE IR 5 MG TABLET PO PRN ×2 (03:52→12:18)
[2016-11-12 07:00] VITALS: BP 117/80
[2016-11-12] MEDS: ALPRAZolam 0.5 MG TABLET PO PRN ×2 (08:07→16:31)
[2016-11-12] MEDS: PANTOPRAZOLE 40 MG TABLET.DR. PO SCH (08:07)
[2016-11-12] MEDS: SENNOSIDES/DOCUSATE 8.6/50MG TABLET. PO SCH ×2 (08:08→22:01)
[2016-11-12 08:18] LABS: INR 1.2 (0.8-1.1); PROTHROMBIN TIME PATIENT 14.5 SEC (11.7-14.0)
[2016-11-12 11:00] VITALS: BP 114/68
[2016-11-12] MEDS: IBUPROFEN 600 MG TABLET. PO PRN ×2 (12:16→19:29)
[2016-11-12 15:11] VITALS: BP 116/73
--- NOTE | 2016-11-12 15:42 | PDOC ---
ORTHO PROGRESS NOTES Subjective Pain a little bit better today. Had trouble sleeping due to the pain last night. Xanax seemed to help him sleep better. Fentanyl not giving much relief. Complains of numbness in toes present since injury. Able to wiggle toes. Medical started ibuprofen today Post-op Day: 3 (ORIF tibial pilon and distal fibulas fxs) Vitals Vital Signs Date Time Temp Pulse Resp B/P (MAP) Pulse Ox O2 Delivery O2 Flow Rate FiO2 11/12/16 15:11 97.6 72 18 116/73 (87) 100 Room Air 97.6 Labs Laboratory Tests Test 11/11/16 05:55 11/12/16 07:50 White Blood Count 8.0 x10^3/uL (4.0-11.0) Red Blood Count 4.27 x10^6/uL (4.30-5.70) Hemoglobin 10.6 g/dL (13.0-17.5) Hematocrit 33.3 % (39.0-53.0) Mean Corpuscular Volume 78 fL (79-100) Mean Corpuscular Hemoglobin 25 pg (25-35) Mean Corpuscular Hemoglobin Concent 32 g/dL (31-37) Red Cell Distribution Width 13.1 % (11.5-14.5) Platelet Count 256 x10^3/uL (140-400) Neutrophils (%) (Auto) 60 % (31-73) Lymphocytes (%) (Auto) 28 % (24-48) Monocytes (%) (Auto) 10 % (0-9) Eosinophils (%) (Auto) 1 % (0-3) Basophils (%) (Auto) 1 % (0-3) Neutrophils # (Auto) 4.8 x10^3uL (1.8-7.7) Lymphocytes # (Auto) 2.3 x10^3/uL (1.0-4.8) Monocytes # (Auto) 0.8 x10^3/uL (0.0-1.1) Eosinophils # (Auto) 0.1 x10^3/uL (0.0-0.7) Basophils # (Auto) 0.0 x10^3/uL (0.0-0.2) Prothrombin Time 13.1 SEC (11.7-14.0) 14.5 SEC (11.7-14.0) Prothromb Time International Ratio 1.1 (0.8-1.1) 1.2 (0.8-1.1) Sodium Level 136 mmol/L (136-145) Potassium Level 3.4 mmol/L (3.5-5.1) Chloride Level 97 mmol/L (98-107) Carbon Dioxide Level 32 mmol/L (21-32) Anion Gap 7 (6-14) Blood Urea Nitrogen 5 mg/dL (8-26) Creatinine 0.9 mg/dL (0.7-1.3) Estimated GFR (Cockcroft-Gault) 112.5 Glucose Level 96 mg/dL (70-99) Calcium Level 8.5 mg/dL (8.5-10.1) Iron Level 10 ug/dL (65-175) Total Iron Binding Capacity 211 ug/dL (250-450) Iron Saturation 5 % (15-34) Ferritin 225 ng/mL (26-388) Laboratory Tests Test 11/12/16 07:50 Prothrombin Time 14.5 SEC (11.7-14.0) Prothromb Time International Ratio 1.2 (0.8-1.1) Notes Right lower extremity edematous, able to wiggle toes. Diminished sensation at toes, unchanged. Skin is warm, unable to palpate pedal pulse due to surgical dressings. Problems: (1) Tibia/fibula fracture Assessment and Plan I agree that starting an NSAID will assist in better controlled, discussed with patient and RN that I recommend the medication be scheduled to achieve a therapeutic effect I discouraged him using the fentanyl We will continue to monitor, hopefully discharge tomorrow Problem Qualifiers (1) Tibia/fibula fracture: Encounter type: initial encounter Fracture type: closed Laterality: right Qualified Codes: S82.201A - Unspecified fracture of shaft of right tibia, initial encounter for closed fracture; S82.401A - Unspecified fracture of shaft of right fibula, initial encounter for closed fracture BEVERLY HERNANDEZ METROLOGY SPECIALIST Nov 12, 2016 15:42
[2016-11-12] MEDS ORDERED: WARFARIN 7.5 MG TABLET. PO ONE (16:00)
[2016-11-12 19:00] VITALS: BP 113/69
[2016-11-12] MEDS: ENOXAPARIN 40 MG/0.4 ML SYRINGE. SQ SCH (22:01)
[2016-11-12 23:00] VITALS: BP 122/74
[2016-11-13] MEDS: ALPRAZolam 0.5 MG TABLET PO PRN ×2 (01:41→12:53)
[2016-11-13] MEDS: IBUPROFEN 600 MG TABLET. PO PRN ×3 (01:45→17:03)
[2016-11-13 05:39] LABS: BASO % 1 % (0-3); EOS % 2 % (0-3); HEMOGLOBIN 10.5 g/dL (13.0-17.5); LYMPH # 1.7 x10^3/uL (1.0-4.8); LYMPH % 24 % (24-48); MEAN CORPUSCULAR HEMOGLOBIN 25 pg (25-35); MEAN CORPUSCULAR HGB CONC 31 g/dL (31-37); MEAN CORPUSCULAR VOLUME 80 fL (79-100); MONO % 11 % (0-9); NEUT % 62 % (31-73); PLATELET COUNT 309 x10^3/uL (140-400); RED BLOOD COUNT 4.27 x10^6/uL (4.30-5.70); RED CELL DISTRIBUTION WIDTH 12.8 % (11.5-14.5); WHITE BLOOD COUNT 7.1 x10^3/uL (4.0-11.0)
[2016-11-13 05:50] LABS: INR 1.2 (0.8-1.1); PROTHROMBIN TIME PATIENT 14.9 SEC (11.7-14.0)
[2016-11-13 06:02] LABS: ALBUMIN 2.7 g/dL (3.4-5.0); ALBUMIN/GLOBULIN RATIO 0.8 (1.0-1.7); CALCIUM 8.4 mg/dL (8.5-10.1); CREATININE 0.9 mg/dL (0.7-1.3); GFR 112.5; POTASSIUM 4.7 mmol/L (3.5-5.1); TOTAL BILIRUBIN 0.5 mg/dL (0.2-1.0); TOTAL PROTEIN 6.2 g/dL (6.4-8.2)
[2016-11-13 07:00] VITALS: BP 114/64
[2016-11-13] MEDS: SENNOSIDES/DOCUSATE 8.6/50MG TABLET. PO SCH ×2 (11:19→21:00)
[2016-11-13] MEDS: PANTOPRAZOLE 40 MG TABLET.DR. PO SCH (11:19)
[2016-11-13 11:49] VITALS: BP 120/70
[2016-11-13] MEDS: fentaNYL PF VIAL 100 MCG/2 ML VIAL IV PRN ×2 (12:46→21:01)
--- NOTE | 2016-11-13 13:57 | PDOC ---
PROGRESS NOTES Chief Complaint Chief Complaint Traumatic tib/fib fx ASSESSMENT AND PLAN: 1. Tib/fib fx: ORIF on 11/[address] Zavala 2. pain control: better on oxyIR 30mg PRN AND fentanyl. 3. EtOH abuse: not triggering any W/D signs or sx on CIWA. stop protocol 4. Tobacco use: nicotine patch 5. Prophylaxis: lovenox post op; transitioning to coumadin 6. Constipation: not unexpected with narcotics. bowel regimen effective 7. Anemia: microcytic. iron studies c/w combination of iron deficient and inflammation. start Fe oral on O/P basis (can add to constipation) 8. Dispo: able to mobilize with History of Present Illness History of Present Illness pain remains at 7, but he feels better. got some rest. BM yesterday Vitals Vitals Vital Signs Date Time Temp Pulse Resp B/P (MAP) Pulse Ox O2 Delivery O2 Flow Rate FiO2 11/13/16 13:23 Room Air 11/13/16 12:46 100 10.0 11/13/16 11:49 97.9 73 18 120/70 (87) 97.9 Physical Exam General: Alert, Oriented X3, Cooperative, No acute distress Heart: Regular rate Lungs: Clear Abdomen: Normal bowel sounds, Soft, No tenderness Extremities: No edema, Other (R leg in cast ) Labs LABS Laboratory Tests Test 11/13/16 05:00 White Blood Count 7.1 x10^3/uL (4.0-11.0) Red Blood Count 4.27 x10^6/uL (4.30-5.70) Hemoglobin 10.5 g/dL (13.0-17.5) Hematocrit 34.0 % (39.0-53.0) Mean Corpuscular Volume 80 fL (79-100) Mean Corpuscular Hemoglobin 25 pg (25-35) Mean Corpuscular Hemoglobin Concent 31 g/dL (31-37) Red Cell Distribution Width 12.8 % (11.5-14.5) Platelet Count 309 x10^3/uL (140-400) Neutrophils (%) (Auto) 62 % (31-73) Lymphocytes (%) (Auto) 24 % (24-48) Monocytes (%) (Auto) 11 % (0-9) Eosinophils (%) (Auto) 2 % (0-3) Basophils (%) (Auto) 1 % (0-3) Neutrophils # (Auto) 4.4 x10^3uL (1.8-7.7) Lymphocytes # (Auto) 1.7 x10^3/uL (1.0-4.8) Monocytes # (Auto) 0.8 x10^3/uL (0.0-1.1) Eosinophils # (Auto) 0.2 x10^3/uL (0.0-0.7) Basophils # (Auto) 0.0 x10^3/uL (0.0-0.2) Prothrombin Time 14.9 SEC (11.7-14.0) Prothromb Time International Ratio 1.2 (0.8-1.1) Sodium Level 137 mmol/L (136-145) Potassium Level 4.7 mmol/L (3.5-5.1) Chloride Level 100 mmol/L (98-107) Carbon Dioxide Level 32 mmol/L (21-32) Anion Gap 5 (6-14) Blood Urea Nitrogen 9 mg/dL (8-26) Creatinine 0.9 mg/dL (0.7-1.3) Estimated GFR (Cockcroft-Gault) 112.5 BUN/Creatinine Ratio 10 (6-20) Glucose Level 100 mg/dL (70-99) Calcium Level 8.4 mg/dL (8.5-10.1) Total Bilirubin 0.5 mg/dL (0.2-1.0) Aspartate Amino Transf (AST/SGOT) 22 U/L (15-37) Alanine Aminotransferase (ALT/SGPT) 21 U/L (16-63) Alkaline Phosphatase 55 U/L (46-116) Total Protein 6.2 g/dL (6.4-8.2) Albumin 2.7 g/dL (3.4-5.0) Albumin/Globulin Ratio 0.8 (1.0-1.7) GURPREET RANKIN MD Nov 13, 2016 13:57
[2016-11-13] MEDS ORDERED: PANT40TA5 PO (14:10)
[2016-11-13] MEDS ORDERED: POLY17PO3 PO (14:10)
[2016-11-13] MEDS ORDERED: SENN-22 PO (14:10)
[2016-11-13] MEDS ORDERED: OXYC15TA PO (14:10)
[2016-11-13] MEDS ORDERED: WARF10TA45 MC (14:10)
[2016-11-13 15:49] VITALS: BP 103/63
[2016-11-13] MEDS ORDERED: WARFARIN 10 MG TABLET. PO ONE (16:00)
[2016-11-13 19:30] VITALS: BP 115/69
[2016-11-13] MEDS: ENOXAPARIN 40 MG/0.4 ML SYRINGE. SQ SCH (21:00)
[2016-11-13 21:29] VITALS: BP 119/75
[2016-11-14 03:21] VITALS: BP 107/80
[2016-11-14 04:55] LABS: BASO # 0.1 x10^3/uL (0.0-0.2); BASO % 1 % (0-3); EOS % 4 % (0-3); HEMOGLOBIN 10.2 g/dL (13.0-17.5); LYMPH # 2.6 x10^3/uL (1.0-4.8); LYMPH % 44 % (24-48); MEAN CORPUSCULAR HEMOGLOBIN 25 pg (25-35); MEAN CORPUSCULAR HGB CONC 31 g/dL (31-37); MEAN CORPUSCULAR VOLUME 80 fL (79-100); MONO % 11 % (0-9); NEUT % 40 % (31-73); PLATELET COUNT 342 x10^3/uL (140-400); RED BLOOD COUNT 4.14 x10^6/uL (4.30-5.70); RED CELL DISTRIBUTION WIDTH 12.9 % (11.5-14.5); WHITE BLOOD COUNT 5.8 x10^3/uL (4.0-11.0)
[2016-11-14 05:01] LABS: INR 1.4 (0.8-1.1); PROTHROMBIN TIME PATIENT 15.9 SEC (11.7-14.0)
[2016-11-14 05:13] LABS: ALBUMIN 2.6 g/dL (3.4-5.0); ALBUMIN/GLOBULIN RATIO 0.6 (1.0-1.7); CALCIUM 8.4 mg/dL (8.5-10.1); CREATININE 0.9 mg/dL (0.7-1.3); GFR 112.5; POTASSIUM 4.3 mmol/L (3.5-5.1); TOTAL BILIRUBIN 0.4 mg/dL (0.2-1.0); TOTAL PROTEIN 6.7 g/dL (6.4-8.2)
[2016-11-14 07:00] VITALS: BP 106/64
[2016-11-14] MEDS: SENNOSIDES/DOCUSATE 8.6/50MG TABLET. PO SCH (08:32)
[2016-11-14] MEDS: ALPRAZolam 0.5 MG TABLET PO PRN (08:33)
[2016-11-14] MEDS: PANTOPRAZOLE 40 MG TABLET.DR. PO SCH (08:33)
[2016-11-14] MEDS: IBUPROFEN 600 MG TABLET. PO PRN ×2 (08:33→16:27)
[2016-11-14 11:00] VITALS: BP 122/70
[2016-11-14 15:00] VITALS: BP 138/84
[2016-11-14] MEDS ORDERED: WARFARIN 6 MG TABLET. PO ONE (16:00)
== END 2016-11-14 20:30 | disposition home or self-care (01) | DRG 493 ==
LOC: ER 13:07 → 4 NORTH 14:21
PROVIDERS: ADMIT Internal Medicine; ATTEND Internal Medicine
PROC: 0QSJ04Z Reposition Right Fibula with Internal Fixation Device, Open Approach (ICD-10-PCS; 2016-11-09)
PROC: 0QSG04Z Reposition Right Tibia with Internal Fixation Device, Open Approach (ICD-10-PCS; principal; 2016-11-09 15:30)
DX: S82.391A Other fracture of lower end of right tibia, initial encounter for closed fracture (principal); E44.1 Mild protein-calorie malnutrition; F17.210 Nicotine dependence, cigarettes, uncomplicated; W11.XXXA Fall on and from ladder, initial encounter; K59.00 Constipation, unspecified; F10.10 Alcohol abuse, uncomplicated; D50.9 Iron deficiency anemia, unspecified; S82.451A Displaced comminuted fracture of shaft of right fibula, initial encounter for closed fracture; Z68.23 Body mass index [BMI] 23.0-23.9, adult; Y93.89 Activity, other specified; Y92.89 Other specified places as the place of occurrence of the external cause; Y99.8 Other external cause status
CPT/HCPCS: 36415; 73590; 73610; 76000; 80048; 80053; 82728; 83540; 83550; 85027; 85610; 87641; 96374; 96375; C1713; C9113; J0690; J0780; J1100; J1170; J1650; J2250; J2270; J2405; J2704; J3010; J3490; J7030; J7120; S0028; 97110; 97116; 97535; 99285-25